=== PATIENT | female | born 1980 | race African-American/Black ===

== ENCOUNTER 2017-01-29 17:31 | Emergency (ER) | payer MEDICAID, OTHER ==
[~2017-01-29] VITALS: Ht 165.1 cm; Wt 83.9 kg
[~2017-01-29 17:31] MED LIST: FLUO40CA8 PO
--- NOTE | 2017-01-29 17:48 | NUR ---
PT IS IN ROOM #1B. DR GERMAIN EVALUATED THE PT.
--- NOTE | 2017-01-29 18:13 | NUR ---
PT WAS D/C TO HOME AFTER ER MD EVALUATION. D/C INSTRUCTIONS GIVEN TO THE PT.
[2017-01-29 18:15] VITALS: BP 128/75
== END 2017-01-29 18:15 | disposition home or self-care (01) ==
LOC: ER 17:33
DX: J40 Bronchitis, not specified as acute or chronic (principal); Z88.2 Allergy status to sulfonamides
CPT/HCPCS: 71010; 99283; A4663

== ENCOUNTER 2021-04-28 22:48 | Emergency (ER) | payer MEDICAID ==
[~2021-04-28] VITALS: Ht 165.1 cm; Wt 113.4 kg
--- NOTE | 2021-04-28 22:55 | NUR ---
PT BIB [facility] FROM HOME FOR ABD ESPINOSA WITH N/V AND DIARRHEA, STARTED 8 HRS [employer]. A/O X4, NO SOB OR LABORED BREATHING, AFEBRILE. CLEAR SPEECH, COMPLETE SENTENCES. DENIES CP/PRESSURE.
[2021-04-28] MEDS ORDERED: IV NORMAL SALINE 1000 ML BAG IV ONE (23:00)
[2021-04-28] MEDS ORDERED: MORPHINE SULFATE 4 MG/1 ML DISP.SYRIN IV ONE (23:00)
[2021-04-28] MEDS ORDERED: ONDANSETRON 4 MG/2 ML VIAL IV ONE (23:00)
--- NOTE | 2021-04-28 23:07 | NUR ---
DR. PHILLIPS AT BEDSIDE, MSE IN PROGRESS.
[2021-04-28] MEDS ORDERED: ONDANSETRON 4 MG/2 ML VIAL ONE (23:20)
[2021-04-28] MEDS ORDERED: MORPHINE SULFATE 4 MG/1 ML DISP.SYRIN ONE (23:20)
[2021-04-29] MEDS ORDERED: HYDROMORPHONE 1 MG/1 ML DISP.SYRIN IV ONE
[2021-04-29 00:03] LABS: HEMATOCRIT 37.6 % (31.2-41.9); MEAN CORPUSCULAR VOLUME 87.6 fL (75.5-95.3); PLATELET COUNT (AUTO) 380 K/uL (179-408)
[2021-04-29] MEDS ORDERED: HYDROMORPHONE 1 MG/1 ML DISP.SYRIN ONE (00:13)
[2021-04-29 00:16] LABS: POTASSIUM 3.7 mmol/L (3.5-5.1)
[2021-04-29 00:21] LABS: BILIRUBIN,DIRECT 0.1 mg/dL (0.0-0.2); BILIRUBIN,TOTAL 0.3 mg/dL (0.2-1.0)
--- NOTE | 2021-04-29 00:33 | NUR ---
PT TAKEN TO CT.
[2021-04-29] MEDS ORDERED: IOHEXOL 300MG/ML 100 ML INFUS..BTL ONE (00:37)
--- NOTE | 2021-04-29 00:46 | NUR ---
PT RETURNED FROM CT.
[2021-04-29] MEDS ORDERED: IV NS 1000 ML 1,000 ML IV ONE (01:00)
[2021-04-29] MEDS ORDERED: KETAMINE HCL 500 MG/10 ML INJ IV ONE (01:15)
[2021-04-29] MEDS ORDERED: ONDANSETRON 4 MG/2 ML VIAL IV ONE ×2 (01:15)
[2021-04-29] MEDS ORDERED: KETAMINE HCL 500 MG/10 ML INJ ONE (01:23)
[2021-04-29 01:28] LABS: *BILIRUBIN,URIN NEGATIVE (NEGATIVE); *CLARITY,URINE CLEAR (CLEAR); *COLOR,URINE YELLOW (YELLOW); *KETONES,URINE TRACE (NEGATIVE); *UROBILINOGEN,URINE 0.2 E.U./dl (NORMAL); LEUKOCYTE ESTERASE ,URINE NEGATIVE (NEGATIVE); NITRITE, URINE NEGATIVE (NEGATIVE); PH,URINE 7.5 (5.0-8.0); UGLUCOSE NEGATIVE (NEGATIVE)
[2021-04-29 01:29] LABS: *BLOOD, URINE TRACE (NEGATIVE)
[2021-04-29 01:32] LABS: *URINE HCG, QUAL NEGATIVE (NEGATIVE)
--- NOTE | 2021-04-29 02:18 | NUR ---
CALLED [facility] SPOKE WITH ELIZABET, CT BEING READ BY RADIOLOGIST AT THE MOMENT.
--- NOTE | 2021-04-29 02:55 | NUR ---
PT TOLERATED PO CHALLENGE.
[2021-04-29] MEDS ORDERED: FAMO-132 PO (03:02)
[2021-04-29] MEDS ORDERED: ONDA4TAB11 PO (03:02)
[2021-04-29] MEDS ORDERED: DICY20TA11 PO (03:02)
--- NOTE | 2021-04-29 03:10 | NUR ---
Patient discharged to home in stable condition. Written and verbal after care instructions given. Patient verbalizes understanding of instructions. Stressed follow up or return to ER for worsening s/s. Steady gait. Denies any n/v/d. Denies any pain/discomfort. No changes in LOC. Picked up by family.
[2021-04-29 03:12] VITALS: BP 132/77
[2021-04-29 10:04] LABS: BACTERIA,URINE NONE SEEN /HPF (NONE SEEN); RBC,URINE 0-3 /HPF (0-3); SQUAMOUS EPITHELIAL CELL,UR FEW /HPF (NONE SEEN); WBC,URINE 0-3 /HPF (0-3)
== END 2021-04-29 03:17 | disposition home or self-care (01) ==
LOC: ER 23:02
DX: R10.13 Epigastric pain (principal); E87.2 Acidosis; K76.0 Fatty (change of) liver, not elsewhere classified; R94.31 Abnormal electrocardiogram [ECG] [EKG]; Z88.2 Allergy status to sulfonamides; F32.A Depression, unspecified; Z79.899 Other long term (current) drug therapy
CPT/HCPCS: 36415 ×2; 74177; 80048; 80076; 81001; 83605 ×2; 83690; 84702; 84703; 85025; 93005; 96361; 96374; 96375 ×2; 96376; 99285; J1170; J2270; J2405 ×3; J3490; Q9967; A4663; J7030

== ENCOUNTER 2022-08-18 22:03 | Emergency (ER) | payer BC, MEDICAID ==
[~2022-08-18] VITALS: Ht 165.1 cm; Wt 127.0 kg
[~2022-08-18 22:03] MED LIST changes: +DICY20TA11 PO; +FAMO-132 PO; +ONDA4TAB11 PO
--- NOTE | 2022-08-18 23:45 | NUR ---
PT AMB TO RM 2A WITH STEADY GAIT WITH C/O N/V AND EPIGASTRIC PAIN X 24 HRS.
[2022-08-19] MEDS ORDERED: PROCHLORPERAZINE EDISYLATE 10 MG/2 ML VIAL IV ONE
[2022-08-19] MEDS ORDERED: IV NS 1000 ML 1,000 ML IV ONE
[2022-08-19 00:22] LABS: HEMATOCRIT 38.3 % (31.2-41.9); MEAN CORPUSCULAR HEMOGLOBIN 28.8 uug (24.7-32.8); PLATELET COUNT (AUTO) 379 K/uL (179-408)
[2022-08-19 00:33] LABS: CREATININE 0.9 mg/dL (0.6-1.3); POTASSIUM 3.7 mmol/L (3.5-5.1)
--- NOTE | 2022-08-19 01:00 | NUR ---
PT UP OOB AMB TO BR WITH STEADY GAIT.
[2022-08-19] MEDS ORDERED: PROCHLORPERAZINE EDISYLATE 10 MG/2 ML VIAL ONE (01:04)
[2022-08-19] MEDS ORDERED: HYDROMORPHONE 1 MG/1 ML DISP.SYRIN ONE ×2 (01:05→01:33)
[2022-08-19] MEDS ORDERED: HYDROMORPHONE 1 MG/1 ML DISP.SYRIN IV ONE ×2 (01:30)
[2022-08-19] MEDS ORDERED: BLOO-1730 MC (01:45)
[2022-08-19] MEDS ORDERED: HYDR-3980 PO (01:45)
[2022-08-19] MEDS ORDERED: PROC10TA29 PO (01:45)
--- NOTE | 2022-08-19 02:20 | NUR ---
PT A,A AND O X 4 WITH NO C/O PAIN AND SLIGHT NAUSEA, NAD OBSERVED.Patient discharged to home in stable condition. Written and verbal after care instructions given. Patient verbalizes understanding of instructions. Stressed follow up or return to ER for worsening s/s. PT AMB OUT WITH STEADY GAIT.
[2022-08-19 02:35] VITALS: BP 121/77
== END 2022-08-19 02:20 | disposition home or self-care (01) ==
LOC: ER 22:15
DX: R10.10 Upper abdominal pain, unspecified (principal); R11.2 Nausea with vomiting, unspecified; R55 Syncope and collapse; E11.9 Type 2 diabetes mellitus without complications; T50.905A Adverse effect of unspecified drugs, medicaments and biological substances, initial encounter; Z88.2 Allergy status to sulfonamides; Z79.2 Long term (current) use of antibiotics; Z79.899 Other long term (current) drug therapy; Y92.89 Other specified places as the place of occurrence of the external cause
CPT/HCPCS: 99284; 36415; 93005; 96374; 96361; 96375; 80048; 85025; 84484; 96376; J0780; J1170 ×2; J7040; A4663

== ENCOUNTER 2022-10-23 10:39 | Emergency (ER) | payer BC ==
[~2022-10-23] VITALS: Ht 165.1 cm; Wt 122.5 kg
[~2022-10-23 10:39] MED LIST changes: +BLOO-1730 MC; +HYDR-3980 PO; +PROC10TA29 PO
[2022-10-23] MEDS ORDERED: methylPREDNISolone SOD SUCC 125 MG/2 ML VIAL IV ONE (11:15)
[2022-10-23] MEDS ORDERED: IV NORMAL SALINE 250 ML IV ONE (11:26)
[2022-10-23] MEDS ORDERED: IOHEXOL 350 100 ML INFUS..BTL ONE (11:26)
[2022-10-23] MEDS ORDERED: ACETAMINOPHEN/CODEINE 300-30 MG TABLET PO ONE (11:30)
[2022-10-23] MEDS ORDERED: methylPREDNISolone SOD SUCC 125 MG/2 ML VIAL ONE (11:33)
[2022-10-23] MEDS ORDERED: ACETAMINOPHEN/CODEINE 300-30 MG TABLET ONE (11:34)
[2022-10-23 11:47] LABS: CALCIUM 8.9 mg/dL (8.5-10.1); CARBON DIOXIDE 28 mmol/L (21-32); CHLORIDE 103 mmol/L (98-107); CREATININE 0.8 mg/dL (0.6-1.3); GLUCOSE 129 mg/dL (74-106); POTASSIUM 4.1 mmol/L (3.5-5.1); SODIUM SERUM 139 mmol/L (136-145); UREA NITROGEN, BLOOD 8 mg/dL (7-18)
[2022-10-23 11:49] LABS: BASOPHILS # (AUTO) 0.1 K/UL (0.0-0.2); BASOPHILS % (AUTO) 1.4 % (0.0-2.0); DIFFERENTIAL COMMENT 0; EOSINOPHILS # (AUTO) 0.1 K/uL (0.0-0.7); EOSINOPHILS % (AUTO) 1.8 % (0.0-7.0); HEMATOCRIT 36.1 % (31.2-41.9); HEMOGLOBIN 11.8 g/dL (10.9-14.3); LYMPHOCYTES # (AUTO) 2.5 K/uL (0.8-4.8); LYMPHOCYTES % (AUTO) 31.6 % (20.5-51.5); MEAN CORPUSCULAR HEMOGLOBIN 28.6 uug (24.7-32.8); MEAN CORPUSCULAR HGB CONC 33 g/dL (32.3-35.6); MEAN CORPUSCULAR VOLUME 87.8 fL (75.5-95.3); MONOCYTES # (AUTO) 0.6 K/uL (0.1-1.30); MONOCYTES % (AUTO) 7.7 % (0.0-11.0); NEUTROPHILS # (AUTO) 4.6 K/uL (1.8-8.9); NEUTROPHILS % (AUTO) 57.5 % (38.5-71.5); PLATELET COUNT (AUTO) 386 K/uL (179-408); RED BLOOD CELL COUNT(AUTO) 4.11 MIL/uL (3.63-4.92); RED CELL DISTRIBUTION WIDTH 15.5 % (12.3-17.7); WHITE BLOOD COUNT (AUTO) 7.9 K/uL (3.8-11.8)
[2022-10-23 11:59] LABS: ALANINE AMINOTRANSFERASE 18 U/L (14-59); ALBUMIN 3.4 g/dL (3.4-5.0); ALKALINE PHOSPHATASE 68 U/L (50-136); ASPARTATE AMINOTRANSFERASE 20 U/L (15-37); BILIRUBIN,DIRECT 0.1 mg/dL (0.0-0.2); BILIRUBIN,TOTAL 0.3 mg/dL (0.2-1.0); NT-PRO BNP 92 pg/mL (0-125); TOTAL PROTEIN, SERUM 7.6 g/dL (6.4-8.2)
[2022-10-23] MEDS ORDERED: MORPHINE SULFATE 4 MG/1 ML DISP.SYRIN ONE (13:37)
[2022-10-23] MEDS ORDERED: ONDANSETRON 4 MG/2 ML VIAL IV ONE (13:45)
[2022-10-23] MEDS ORDERED: MORPHINE SULFATE 4 MG/1 ML DISP.SYRIN IV ONE (13:45)
[2022-10-23] MEDS ORDERED: HYDR-3972 PO (13:54)
[2022-10-23] MEDS ORDERED: PRED50TA PO (13:54)
[2022-10-23] MEDS ORDERED: ONDANSETRON 4 MG/2 ML VIAL ONE (14:05)
[2022-10-23] MEDS ORDERED: IV NORMAL SALINE 1000 ML BAG IV ONE (14:15)
[2022-10-23 15:54] VITALS: BP 129/68; TEMP 98; O2SAT 99
== END 2022-10-23 14:45 | disposition home or self-care (01) ==
LOC: ER 10:39
DX: J45.909 Unspecified asthma, uncomplicated (principal); R10.2 Pelvic and perineal pain; E11.9 Type 2 diabetes mellitus without complications; Z88.2 Allergy status to sulfonamides; Z79.2 Long term (current) use of antibiotics; Z79.899 Other long term (current) drug therapy; Z20.822 Contact with and (suspected) exposure to COVID-19
CPT/HCPCS: 36415; 71045; 71275; 84484; 85025; 85730; 93005; A4663; J2270; J2405; J2930; J7040; Q9967

== ENCOUNTER 2023-10-21 02:50 | Emergency (ER) | payer BC, MEDICAID ==
[~2023-10-21] VITALS: Ht 165.1 cm; Wt 113.4 kg
[~2023-10-21 02:50] MED LIST changes: +HYDR-3972 PO; +PRED50TA PO
[2023-10-21] MEDS ORDERED: NAPR-1009 PO (03:51)
[2023-10-21 04:01] VITALS: BP 142/70; TEMP 98.6; O2SAT 99
== END 2023-10-21 04:02 | disposition home or self-care (01) ==
LOC: ER 03:02
DX: S63.681A Other sprain of right thumb, initial encounter (principal); R03.0 Elevated blood-pressure reading, without diagnosis of hypertension; Z79.891 Long term (current) use of opiate analgesic; Z79.899 Other long term (current) drug therapy; Z88.2 Allergy status to sulfonamides; Z60.2 Problems related to living alone; W01.0XXA Fall on same level from slipping, tripping and stumbling without subsequent striking against object, initial encounter; Y93.89 Activity, other specified; Y92.89 Other specified places as the place of occurrence of the external cause; Y99.8 Other external cause status
CPT/HCPCS: 73130; A4606; A4663

== ENCOUNTER → 2024-07-27 | Emergency (ER) | payer MEDICAID ==
[~2024-07-27] VITALS: Ht 165.1 cm; Wt 127.0 kg
[~2024-07-27] MED LIST changes: +CIPR500T5 PO; +IOHEXOL 350 100 ML INFUS..BTL ONE; +METO-295 PO; +METOCLOPRAMIDE HCL 10 MG/2 ML VIAL ONE; +MORPHINE SULFATE 4 MG/1 ML DISP.SYRIN ONE; +NAPR-1009 PO; +ONDANSETRON 4 MG/2 ML VIAL ONE; +PANT40TA49 PO; +PANTOPRAZOLE SODIUM 40 MG VIAL ONE; +SWABABLE VALVE TRANSFER SET EA MC ONE
[2024-07-27 18:33] LABS: BASOPHILS % (AUTO) 0.2 % (0.0-2.0); EOSINOPHILS # (AUTO) 0.6 K/uL (0.0-0.7); EOSINOPHILS % (AUTO) 5.7 % (0.0-7.0); HEMATOCRIT 39.9 % (31.2-41.9); LYMPHOCYTES # (AUTO) 1.6 K/uL (0.8-4.8); LYMPHOCYTES % (AUTO) 15.5 % (20.5-51.5); MEAN CORPUSCULAR HGB CONC 33 g/dL (32.3-35.6); MEAN CORPUSCULAR VOLUME 85.8 fL (75.5-95.3); MONOCYTES # (AUTO) 0.7 K/uL (0.1-1.30); MONOCYTES % (AUTO) 6.5 % (0.0-11.0); NEUTROPHILS # (AUTO) 7.5 K/uL (1.8-8.9); NEUTROPHILS % (AUTO) 72.1 % (38.5-71.5); PLATELET COUNT (AUTO) 376 K/uL (179-408); RED BLOOD CELL COUNT(AUTO) 4.65 MIL/uL (3.63-4.92); RED CELL DISTRIBUTION WIDTH 16.5 % (12.3-17.7); WHITE BLOOD COUNT (AUTO) 10.4 K/uL (3.8-11.8)
[2024-07-27 18:36] LABS: DIFFERENTIAL COMMENT 1
[2024-07-27 18:42] LABS: CALCIUM 9.9 mg/dL (8.5-10.1); CARBON DIOXIDE 24 mmol/L (21-32); CHLORIDE 101 mmol/L (98-107); GLUCOSE 107 mg/dL (74-106); POTASSIUM 3.5 mmol/L (3.5-5.1); SODIUM SERUM 139 mmol/L (136-145); UREA NITROGEN, BLOOD 10 mg/dL (7-18)
[2024-07-27 18:56] LABS: ALANINE AMINOTRANSFERASE < 6 U/L (14-59); ALBUMIN 3.6 g/dL (3.4-5.0); ALKALINE PHOSPHATASE 83 U/L (50-136); ASPARTATE AMINOTRANSFERASE 16 U/L (15-37); BILIRUBIN,DIRECT 0.1 mg/dL (0.0-0.2); BILIRUBIN,TOTAL 0.5 mg/dL (0.2-1.0); LIPASE 26 U/L (16-77); TOTAL PROTEIN, SERUM 8.3 g/dL (6.4-8.2)
[2024-07-27] MEDS: IV NORMAL SALINE 1000 ML BAG IV ONE (18:58)
[2024-07-27] MEDS: ONDANSETRON 4 MG/2 ML VIAL IV ONE (18:58)
[2024-07-27] MEDS: PANTOPRAZOLE SODIUM IV 40 MG in IV DEXTROSE 5% 100 ML IV ONE (19:09)
[2024-07-27] MEDS: MORPHINE SULFATE 4 MG/1 ML DISP.SYRIN IV ONE (19:59)
[2024-07-27] MEDS: METOCLOPRAMIDE HCL 10 MG/2 ML VIAL IV ONE (20:00)
[2024-07-27 20:16] LABS: *CLARITY,URINE CLEAR (CLEAR); *COLOR,URINE YELLOW (YELLOW); *KETONES,URINE 4+ (NEGATIVE); *PROTEIN,URINE 2+ (NEGATIVE); *UROBILINOGEN,URINE 0.2 E.U./dl (NORMAL); LEUKOCYTE ESTERASE ,URINE NEGATIVE (NEGATIVE); NITRITE, URINE NEGATIVE (NEGATIVE); PH,URINE 6.5 (5.0-8.0); UGLUCOSE NEGATIVE (NEGATIVE)
[2024-07-27 20:19] LABS: *BILIRUBIN,URIN 2+ (NEGATIVE); *BLOOD, URINE NEGATIVE (NEGATIVE)
[2024-07-27 20:20] LABS: *URINE HCG, QUAL NEGATIVE (NEGATIVE); RBC,URINE 0-3 /HPF (0-3); WBC,URINE 0-3 /HPF (0-3)
[2024-07-27 23:25] VITALS: BP 98/65; TEMP 98; O2SAT 97
== END | disposition home or self-care (01) ==
LOC: ER 18:15
DX: K29.00 Acute gastritis without bleeding (principal); K52.9 Noninfective gastroenteritis and colitis, unspecified; F32.A Depression, unspecified; I10 Essential (primary) hypertension; R11.2 Nausea with vomiting, unspecified; Z79.52 Long term (current) use of systemic steroids; Z79.899 Other long term (current) drug therapy; Z88.2 Allergy status to sulfonamides; Z88.7 Allergy status to serum and vaccine; Z60.2 Problems related to living alone
CPT/HCPCS: 36415; 83690; 84703; 85025; A4606; A4663; J2270; J2405; J2470; J2765; J7040; Q9967